=== PATIENT | male | born 2000 | race Asian ===

== ENCOUNTER 2023-11-13 11:38 | Emergency (ER) | payer OTHER ==
--- NOTE | 2023-11-13 11:58 | ED Physician Documentation ---
PD HPI MHE - Stated complaint Stated Complaint: MHE - Additional information Additional information: 23-year-old male no pertinent past medical history presents emergency department for increased suicidal ideation. Patient says that he is struggled with depression for some time now and lately he has been having a hard time because he feels like he does not have any more differential in society. Last night was the first time he started self cutting he told his chief command and his chief command told him come to the emergency department for mental health examination. Patient endorses recent stressors lately feels like he has had a lot of other interpersonal issues and is having hard time coping with it. He does have a plan to commit suicide in fact he says he has multiple plans but he can decide if he wants to do it fast or slow. He also endorses and homicidal ideation you have been having he tends to sometimes ruminate on thoughts of hurting them but says that he does not want to act on them. He said that he is willing to be hospitalized. He has not been on any antidepressants in the past recently started taking ashwagandha and [employer] main supplements which has helped a little bit but lately he feels more triggered than normal. 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 : None HEENT: None Psych: Depression - Allergies Allergies/Adverse Reactions: Allergies Allergy/AdvReac Type Severity Reaction Status Date / Time No Known Drug Allergies Allergy Verified 11/13/23 12:16 PD ED PE NORMAL - Vitals Vital signs reviewed: Yes - General General: Alert and oriented X 3, No acute distress, Well developed/nourished - HEENT HEENT: Atraumatic, PERRL - Cardiac Cardiac: RRR - Respiratory Respiratory: No respiratory distress, Clear bilaterally - Derm Derm: Other (Superficial linear cut mclean to the anterior mid right thigh) PD ED PE EXPANDED - Psych Psych: Depressed, Suicidal, Homicidal, Withdrawn, Poor eye contact. No: Intoxicated / AOB, Tearful, Anxious, Agitated, Combative, Manic, Pressured speech, Flight of ideas, Auditory hallucinations, Visual hallucinations, Tactile hallucinations, Delusions Results - Vitals Vitals: Vital Signs - 24 hr 11/13/23 11/13/23 12:00 18:20 Temperature 37.0 C 36.8 C Heart Rate 92 72 Respiratory 20 16 Rate Blood Pressure 149/93 H 125/74 O2 Saturation 98 99 Oxygen O2 Source Room air - Labs Labs: Laboratory Tests 11/13/23 11/13/23 11/13/23 12:06 12:06 15:03 WBC 8.1 RBC 5.32 Hgb 14.8 Hct 46.1 MCV 86.7 MCH 27.8 MCHC 32.1 RDW 13.3 Plt Count 278 MPV 8.6 Neut # (Auto) 5.1 Lymph # (Auto) 2.2 [place] # (Auto) 0.5 Eos # (Auto) 0.2 Baso # (Auto) 0.1 Absolute Nucleated RBC 0.00 Nucleated RBC % 0.0 Sodium 138 Potassium 4.0 Chloride 104 Carbon Dioxide 27 Anion Gap 7.0 BUN 17 Creatinine 1.1 Estimated GFR (MDRD) 83 L Glucose 108 H Calcium 9.8 Magnesium 1.7 Total Bilirubin 0.6 AST 22 ALT 12 Alkaline Phosphatase 87 Total Creatine Kinase 236 H Total Protein 7.5 Albumin 4.4 Globulin 3.1 Albumin/Globulin Ratio 1.4 Lipase 107 H TSH 1.69 Urine Color YELLOW Urine Clarity CLEAR Urine pH 6.0 Ur Specific [place] 1.025 Urine Protein NEGATIVE Urine Glucose (UA) NEGATIVE Urine Ketones NEGATIVE Urine Occult Blood NEGATIVE Urine Nitrite NEGATIVE Urine Bilirubin NEGATIVE Urine Urobilinogen 0.2 (NORMAL) Ur Leukocyte Esterase NEGATIVE Ur Microscopic Review NOT INDICATED Urine Culture Comments NOT INDICATED Salicylates < 1.5 Urine Opiates Screen NEGATIVE Ur Buprenorphine Scrn NEGATIVE Ur Oxycodone Screen NEGATIVE Urine Methadone Screen NEGATIVE Acetaminophen 0.2 Ur Barbiturates Screen NEGATIVE Ur Tricyclics Screen NEGATIVE Ur Phencyclidine Scrn NEGATIVE Ur Amphetamine Screen NEGATIVE U Methamphetamines Scrn NEGATIVE U Benzodiazepines Scrn NEGATIVE Urine Cocaine Screen NEGATIVE U Cannabinoids Screen NEGATIVE Ur Drug Screen Comment CUTOFF CONC BELOW: Ethyl Alcohol < 10.0 PD Medical Decision Making - ED course ED course: 23-year-old male presents emergency department for concerns of suicidal ideation with intentional self cuts to his right anterior medial thigh and passive homicidal thoughts. Patient is willing to be hospitalized. We have completed some basic labs as well as urinalysis and patient is found to be medically cleared for psychiatric hospitalization. No signs of infection, no electrolyte abnormalities CK slightly elevated to 136, lipase slightly elevated at 107 no abdominal complaints or other physical complaints. Sulfate, Tylenol, alcohol level is undetectable. Social work seeing patient and going to hospitalize him he is agreeable for this. I spoke with Jeremías narayan provider [facility] who has agreed to admit the patient for further hospitalization for patient's suicidal homicidal ideation. Patient will go via BLS to [facility] for psych admission. Departure - Departure Disposition: 65 Psych Hosp/Unit DC/Xfer Clinical Impression: Mental health problem, Suicidal ideations, Deliberate self-cutting, Homicidal thoughts Condition: Good Forms: PCP List Discharge Date/Time: 11/13/23 18:24
[2023-11-13 12:11] LABS: BASOPHILS # (AUTO) 0.1 10^3/uL (0.0-0.1); BASOPHILS % (AUTO) 0.7 %; EOSINOPHILS # (AUTO) 0.2 10^3/uL (0.0-0.7); EOSINOPHILS % (AUTO) 2.7 %; HCT - HEMATOCRIT 46.1 % (42.0-52.0); HGB - HEMOGLOBIN 14.8 g/dL (14.0-18.0); LYMPHOCYTES # (AUTO) 2.2 10^3/uL (1.5-3.5); LYMPHOCYTES % (AUTO) 26.7 %; MEAN CORPUSCULAR HEMOGLOBIN 27.8 pg (27.0-31.0); MEAN CORPUSCULAR HGB CONC 32.1 g/dL (32.0-36.0); MEAN CORPUSCULAR VOLUME 86.7 fL (80.0-94.0); MEAN PLATELET VOLUME 8.6 fL (7.4-11.4); MONOCYTES # (AUTO) 0.5 10^3/uL (0.0-1.0); MONOCYTES % (AUTO) 6.1 %; NEUTROPHILS # (AUTO) 5.1 10^3/uL (1.5-6.6); NEUTROPHILS % (AUTO) 63.4 %; PLT - PLATELET COUNT 278 10^3/uL (130-450); RED BLOOD COUNT 5.32 10^6/uL (4.70-6.10); RED CELL DISTRIBUTION WIDTH 13.3 % (12.0-15.0); WHITE BLOOD COUNT 8.1 x10^3/uL (4.8-10.8)
[2023-11-13 12:29] LABS: ACETAMINOPHEN 0.2 ug/mL; ALBUMIN 4.4 g/dL (3.2-5.5); ALBUMIN/GLOBULIN RATIO 1.4 (1.0-2.2); ALKALINE PHOSPHATASE 87 IU/L (42-121); ALT ALANINE AMINOTRANSFERASE 12 IU/L (10-60); AST ASPARTATE AMINOTRANSFERASE 22 IU/L (10-42); BILIRUBIN,TOTAL 0.6 mg/dL (0.2-1.0); BUN - BLOOD UREA NITROGEN 17 mg/dL (6-20); CALCIUM 9.8 mg/dL (8.5-10.3); CARBON DIOXIDE - CO2 27 mmol/L (21-32); CHLORIDE 104 mmol/L (101-111); CK- CREATINE KINASE 236 IU/L (30-223); CREATININE 1.1 mg/dL (0.6-1.3); ETOH - ETHANOL < 10.0 mg/dL; GFR - MDRD 83 (>89); GLUCOSE 108 mg/dL (74-104); LIPASE 107 U/L (11-82); MAGNESIUM 1.7 mg/dL (1.7-2.3); SODIUM 138 mmol/L (135-145); TOTAL PROTEIN 7.5 g/dL (6.4-8.9)
[2023-11-13 12:37] LABS: SALICYLATE < 1.5 mg/dL
[2023-11-13 12:40] LABS: THYROID STIMULATING HORMONE 1.69 uIU/mL (0.34-5.60)
[2023-11-13 15:09] LABS: BILIRUBIN,URINE NEGATIVE (NEGATIVE); CLARITY,URINE CLEAR (CLEAR); GLUCOSE, URINE (UA) NEGATIVE (NEGATIVE); KETONES,URINE (UA) NEGATIVE (NEGATIVE); LEUKOCYTE ESTERASE, URINE NEGATIVE (NEGATIVE); NITRITE,URINE NEGATIVE (NEGATIVE); OCCULT BLOOD,URINE NEGATIVE (NEGATIVE); PROTEIN,URINE NEGATIVE (NEGATIVE); UROBILINOGEN,URINE 0.2 (NORMAL) E.U./dL (NORMAL)
[2023-11-13 15:20] LABS: AMPHETAMINE SCREEN,URINE NEGATIVE (NEGATIVE); BARBITURATE SCREEN,UR NEGATIVE (NEGATIVE); BENZODIAZEPINES SCREEN, URINE NEGATIVE (NEGATIVE); BUPRENORPHINE SCREEN, URINE NEGATIVE (NEGATIVE); COCAINE SCREEN URINE NEGATIVE (NEGATIVE); METHADONE SCREEN, URINE NEGATIVE (NEGATIVE); METHAMPHETAMINES SCREEN, URINE NEGATIVE (NEGATIVE); OPIATE SCREEN, URINE NEGATIVE (NEGATIVE); OXYCODONE SCREEN, URINE NEGATIVE (NEGATIVE); THC CANNABINOID SCREEN, URINE NEGATIVE (NEGATIVE); TRICYCLIC ANTIDEPRESSANT,URINE NEGATIVE (NEGATIVE)
[2023-11-13 18:25] VITALS: BP 125/74; O2SAT 99
== END 2023-11-13 18:24 ==
LOC: ED 11:38
DX: R45.851 Suicidal ideations (principal); R45.850 Homicidal ideations; R45.88 Nonsuicidal self-harm
CPT/HCPCS: 36415; 80053; 80143; 80179; 80306; 81001; 81003; 82077; 82550; 83690; 83735; 84443; 85025; 87086; 99285

== ENCOUNTER 2023-12-02 16:21 | Emergency (ER) | payer OTHER ==
[2023-12-02 16:39] VITALS: O2SAT 99
--- NOTE | 2023-12-02 16:58 | ED Physician Documentation ---
PD HPI MHE - Stated complaint Stated Complaint: SI - Chief complaint Chief Complaint: MHE - Additional information Additional information: 23-year-old male presents emergency department for suicidal ideation with a plan. Patient was recently here for suicidal homicidal ideation he was hospitalized at [facility] and he says overall he is doing significantly better especially in comparison to last time he was here is having some ongoing suici mariama ideation and thoughts. He has been in therapy but is worried that he needs more. Unclear what entirely triggered this event of suicidal ideation but says that he might of missed read the situation or friends facial expressions and says that he later found out that she is on her period. He saying that he does not want to be hospitalized at this point in time but does want to check in with someone to make sure that he does not act on anything he has been started on antidepressants and feels overall that they are working. Denies any illicit drug use or substance abuse. Denies any homicidal thoughts. PD PAST MEDICAL HISTORY - Past Medical History Past Medical History: Yes Cardiovascular: None Respiratory: None Neuro: None Endocrine/Autoimmune: None GI: None BIOCHEMIST: None : None HEENT: None Psych: Depression - Past Surgical History Past Surgical History: No - Present Medications Home Medications: Ambulatory Orders Medication Instructions Recorded Confirmed ARIPiprazole [Abilify] 5 mg PO DAILY 12/02/23 12/02/23 Mirtazapine 15 mg PO HS 12/02/23 12/02/23 - Allergies Allergies/Adverse Reactions: Allergies Allergy/AdvReac Type Severity Reaction Status Date / Time No Known Drug Allergies Allergy Verified 12/02/23 16:36 - Social History Does the pt smoke?: Yes Smoking Status: Current every day smoker Does the pt drink ETOH?: Yes Does the pt have substance abuse?: No - Immunizations Immunizations are current?: Yes - POLST Patient has POLST: No PD ED PE NORMAL - Vitals Vital signs reviewed: Yes - General General: Alert and oriented X 3, No acute distress, Well developed/nourished - HEENT HEENT: Atraumatic, PERRL, EOMI - Neck Neck: Supple, no meningeal sign - Cardiac Cardiac: RRR - Respiratory Respiratory: No respiratory distress, Clear bilaterally - Abdomen Abdomen: Normal bowel sounds PD ED PE EXPANDED - Psych Psych: Normal, Depressed, Suicidal. No: Intoxicated / AOB, Homicidal, Tearful, Withdrawn, Poor eye contact, Anxious, Manic, Pressured speech, Flight of ideas, Auditory hallucinations, Visual hallucinations, Tactile hallucinations, Delusions Results - Vitals Vitals: Vital Signs - 24 hr 12/02/23 12/02/23 16:29 21:20 Temperature 36.3 C L Heart Rate 69 72 Respiratory 15 16 Rate Blood Pressure 128/69 122/66 O2 Saturation 99 99 Oxygen O2 Source Room air - Labs Labs: Laboratory Tests 12/02/23 12/02/23 12/02/23 17:06 17:06 17:20 WBC 10.1 RBC 5.28 Hgb 15.1 Hct 46.4 MCV 87.9 MCH 28.6 MCHC 32.5 RDW 13.3 Plt Count 227 MPV 8.7 Neut # (Auto) 5.9 Lymph # (Auto) 2.8 [place] # (Auto) 0.7 Eos # (Auto) 0.6 Baso # (Auto) 0.1 Absolute Nucleated RBC 0.00 Nucleated RBC % 0.0 Sodium 138 Potassium 4.1 Chloride 101 Carbon Dioxide 31 Anion Gap 6.0 BUN 15 Creatinine 1.2 Estimated GFR (MDRD) 75 L Glucose 89 Calcium 9.8 Magnesium 1.7 Total Bilirubin 0.6 AST 24 ALT 15 Alkaline Phosphatase 89 Total Creatine Kinase 198 Total Protein 7.9 Albumin 4.6 Globulin 3.3 Albumin/Globulin Ratio 1.4 Lipase 11 TSH 1.65 Urine Color YELLOW Urine Clarity CLEAR Urine pH 7.0 Ur Specific [place] 1.020 Urine Protein NEGATIVE Urine Glucose (UA) NEGATIVE Urine Ketones NEGATIVE Urine Occult Blood NEGATIVE Urine Nitrite NEGATIVE Urine Bilirubin NEGATIVE Urine Urobilinogen 0.2 (NORMAL) Ur Leukocyte Esterase NEGATIVE Ur Microscopic Review NOT INDICATED Urine Culture Comments NOT INDICATED Salicylates < 1.5 Urine Opiates Screen NEGATIVE Ur Buprenorphine Scrn NEGATIVE Ur Oxycodone Screen NEGATIVE Urine Methadone Screen NEGATIVE Acetaminophen 0.2 Ur Barbiturates Screen NEGATIVE Ur Tricyclics Screen NEGATIVE Ur Phencyclidine Scrn NEGATIVE Ur Amphetamine Screen NEGATIVE U Methamphetamines Scrn NEGATIVE U Benzodiazepines Scrn NEGATIVE Urine Cocaine Screen NEGATIVE U Cannabinoids Screen NEGATIVE Ur Drug Screen Comment CUTOFF CONC BELOW: Ethyl Alcohol < 10.0 PD Medical Decision Making - ED course ED course: 23-year-old male here for suicidal ideation. Patient says that he has no intentions on acting on this at this point in time he does have a plan to either shoot himself or cut his wrist but he does not have current access to a gun at this point in time. Labs were complete for further evaluation all lab findings were completely unremarkable as well as his urinalysis, negative for urine drug screen negative for alcohol. He is medically cleared at this point time to speak with telemetry psych. Patient says in comparison to when he was here last he is actually feeling significantly better but just wants to talk to someone to make sure that he does not act on his suicidal ideation. Patient was evaluated by telepsych they are recommending outpatient therapy at this point in time patient is already established with counseling outpatient he is told to follow-up with his therapist to see if they are able to increase up his appointments. He denies any plan of suicide at this point in time he says that he is feeling better and is feeling ready to discharge home. He understands return precautions and if things get worse to come back into the emergency department as he has been doing. Departure - Departure Disposition: 01 Home, Self Care Clinical Impression: Suicidal ideation Instructions: ED Stress React, ED Depression Comments: Thank you for trusting us with your care. You have been evaluated by telepsych and at this point in time you are cleared for discharge. Please come back to the emergency department if you are starting develop any worsening suicidal homicidal ideation. Please follow-up with your [facility] counselor for ongoing outpatient further counseling and therapy. Forms: PCP List Discharge Date/Time: 12/02/23 21:20
[2023-12-02 17:10] LABS: BASOPHILS # (AUTO) 0.1 10^3/uL (0.0-0.1); BASOPHILS % (AUTO) 0.8 %; EOSINOPHILS # (AUTO) 0.6 10^3/uL (0.0-0.7); EOSINOPHILS % (AUTO) 5.5 %; HCT - HEMATOCRIT 46.4 % (42.0-52.0); HGB - HEMOGLOBIN 15.1 g/dL (14.0-18.0); LYMPHOCYTES # (AUTO) 2.8 10^3/uL (1.5-3.5); LYMPHOCYTES % (AUTO) 27.7 %; MEAN CORPUSCULAR HEMOGLOBIN 28.6 pg (27.0-31.0); MEAN CORPUSCULAR HGB CONC 32.5 g/dL (32.0-36.0); MEAN CORPUSCULAR VOLUME 87.9 fL (80.0-94.0); MEAN PLATELET VOLUME 8.7 fL (7.4-11.4); MONOCYTES # (AUTO) 0.7 10^3/uL (0.0-1.0); MONOCYTES % (AUTO) 6.9 %; NEUTROPHILS # (AUTO) 5.9 10^3/uL (1.5-6.6); NEUTROPHILS % (AUTO) 58.8 %; PLT - PLATELET COUNT 227 10^3/uL (130-450); RED BLOOD COUNT 5.28 10^6/uL (4.70-6.10); RED CELL DISTRIBUTION WIDTH 13.3 % (12.0-15.0); WHITE BLOOD COUNT 10.1 x10^3/uL (4.8-10.8)
[2023-12-02 17:19] LABS: MAGNESIUM 1.7 mg/dL (1.7-2.3)
[2023-12-02 17:25] LABS: ACETAMINOPHEN 0.2 ug/mL; ALBUMIN 4.6 g/dL (3.2-5.5); ALBUMIN/GLOBULIN RATIO 1.4 (1.0-2.2); ALKALINE PHOSPHATASE 89 IU/L (42-121); ALT ALANINE AMINOTRANSFERASE 15 IU/L (10-60); AST ASPARTATE AMINOTRANSFERASE 24 IU/L (10-42); BILIRUBIN,TOTAL 0.6 mg/dL (0.2-1.0); BUN - BLOOD UREA NITROGEN 15 mg/dL (6-20); CALCIUM 9.8 mg/dL (8.5-10.3); CARBON DIOXIDE - CO2 31 mmol/L (21-32); CHLORIDE 101 mmol/L (101-111); CK- CREATINE KINASE 198 IU/L (30-223); CREATININE 1.2 mg/dL (0.6-1.3); ETOH - ETHANOL < 10.0 mg/dL; GFR - MDRD 75 (>89); GLUCOSE 89 mg/dL (74-104); LIPASE 11 U/L (11-82); POTASSIUM 4.1 mmol/L (3.5-4.5); SODIUM 138 mmol/L (135-145); TOTAL PROTEIN 7.9 g/dL (6.4-8.9)
[2023-12-02 17:26] LABS: SALICYLATE < 1.5 mg/dL
[2023-12-02 17:32] LABS: BILIRUBIN,URINE NEGATIVE (NEGATIVE); GLUCOSE, URINE (UA) NEGATIVE (NEGATIVE); KETONES,URINE (UA) NEGATIVE (NEGATIVE); LEUKOCYTE ESTERASE, URINE NEGATIVE (NEGATIVE); NITRITE,URINE NEGATIVE (NEGATIVE); OCCULT BLOOD,URINE NEGATIVE (NEGATIVE); PROTEIN,URINE NEGATIVE (NEGATIVE); UROBILINOGEN,URINE 0.2 (NORMAL) E.U./dL (NORMAL)
[2023-12-02 17:33] LABS: CLARITY,URINE CLEAR (CLEAR)
[2023-12-02 17:38] LABS: THYROID STIMULATING HORMONE 1.65 uIU/mL (0.34-5.60)
[2023-12-02 17:42] LABS: COCAINE SCREEN URINE NEGATIVE (NEGATIVE); THC CANNABINOID SCREEN, URINE NEGATIVE (NEGATIVE)
[2023-12-02 17:43] LABS: AMPHETAMINE SCREEN,URINE NEGATIVE (NEGATIVE); BARBITURATE SCREEN,UR NEGATIVE (NEGATIVE); BENZODIAZEPINES SCREEN, URINE NEGATIVE (NEGATIVE); BUPRENORPHINE SCREEN, URINE NEGATIVE (NEGATIVE); METHADONE SCREEN, URINE NEGATIVE (NEGATIVE); METHAMPHETAMINES SCREEN, URINE NEGATIVE (NEGATIVE); OPIATE SCREEN, URINE NEGATIVE (NEGATIVE); OXYCODONE SCREEN, URINE NEGATIVE (NEGATIVE); TRICYCLIC ANTIDEPRESSANT,URINE NEGATIVE (NEGATIVE)
--- NOTE | 2023-12-02 20:31 | TELEPSYCH PHYS NOTE ---
[facility] Telepsych Consult Consult Date: 12/02/23 Name of Referring Provider:: ED Provider- Dr. Zafar.. (Could not see full name) Reason for Consult: suicidal ideation - Suicide Risk Sreening (ASQ Tool) In the past few weeks, have you wished you were ?: No In the past few weeks, have you felt that you or your family would be better off if you were ?: No In the past week, have you been having thoughts about killing yourself?: Yes Have you ever tried to kill yourself?: No - Assessment Language: Kiswahili Cultural, Anabaptist or Spiritual Preferences: Denies Chief Complaint: "basically I started to spiral a little bit into a negative thought process but it led into me having suicidal thoughts and thought instead of continuing down this path, I would seek out help. But after some self-reflecting and careful observation, I realize that it was just in my head and I was overthinking" History of Present Illness: Pt is a 23yo M w/ hx of borderline personality disorder, depression, and anxiety who presented with suicidal ideation. Pt reports he had some suicidal ideation earlier today, but feels much better now. He states he utilized his coping skill on how to challenge negative thoughts and only look at facts. He reports he learned the coping skills through behavioral therapy and a book he read called the "Happiness Track." Pt reports he misread his friend's facial expressions. Denies SI, denies HI, denies self-harm thoughts. Pt reports the most recent he cut himself was 2 weeks ago as self-harm, and he was admitted to inpatient hospitalization for that. Pt reports he wants to live for his future. He is in the currently and after he is finished with that, he wants to go to college and pursue a computer science degree. He states he has a good support system with friends and family. When asked about his plan earlier, he says he was just "caught up in the heat of the moment" and he didn't mean it. Pt states if he had suicidal thoughts, he would contact the aircraft powerplant repairer or call his friend. He reports he would also call the crisis line. Suicide Ideation - Homicide Ideation - Self Harm: Denies SI, denies HI, denies self-harm Psychiatric History - Treatment History: Inpatient psychiatric hospitalization: most recently admitted 2 weeks ago (first time- admitted for suicidal ideation) Past diagnosis: borderline personality disorder Community Resources Accessed: He has an outpatient therapist. Family Psych History/ History of suicide: grandma- committed suicide Nutritional Status: No nutritional concerns - Medication & Allergies Home Medications: Ambulatory Orders Medication Instructions Recorded Confirmed ARIPiprazole [Abilify] 5 mg PO DAILY 12/02/23 12/02/23 Mirtazapine 15 mg PO HS 12/02/23 12/02/23 Allergies/Adverse Reactions: Allergies Allergy/AdvReac Type Severity Reaction Status Date / Time No Known Drug Allergies Allergy Verified 12/02/23 16:36 - Drug & Alcohol History Does patient have Drug/ETOH history or addictive behavior?: No Use: Uses substance without health or social issues: NONE - Trauma Does the patient have a history of trauma, abuse, neglect or explotation?: No - Personal Information Does the patient have a history or present tendencies for violence?: None Services History: currently in the Does patient have any Legal Charges or Investigations?: No Environment & Living Situation - Social, Peer-Group (Note): At home Environment & Living Situation - Social, Peer-Group (Notes): lives with roommate, denies firearms at home Marital Status - Family Circumstances: never , no children, identifies having a very good support system Stressors - Financial Concerns: He feels concerned about the people he affected when he cut his leg. He states after he did that he realized how much trouble he put on people around him, and he doesn't want to do that again. Education: graduated highschool Occupation: currently in and works with [employer] Collateral - Interdisciplinary Input: Reviewed ED notes, Collateral with Mom (Momi #[phone]): She feels pt is safe to go home. 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: reports: None - Mental Status Exam Appearance and Attire: hospital clothes, casually groomed Attitude and Behavior: cooperative, no PMA, no PMR Speech: normal rate, amount Affect and Mood: "ok" congruent with mood Association and Thought Process: intact association, linear and organized thought process Thought Content: denies SI, denies HI Perception: denies AVH Sensorium, memory and orientation: alert and oriented to perosn, place, memory grossly intact Intellectual - Cognitive functioning: fair Insight and Judgement: fair insight, fair judgement Emotional and Behavioral Functioning: fair Ability to Self-Care: fair - Personal Goals Short-term Goals: to go home and call his mom Long-term Goals: to graduate from and go to college - Risk/Protective Factors Risk Factors: Trigger events leading to humiliation, shame and/or despair Protective Factors / Internal: Ability to cope with stress, Frustration tolerance, Anabaptist beliefs, Fear of or the actual act of killing self, Identifies reasons for living Protective Factors / External: Cultural, spiritual and/or moral attitudes against suicide, Supportive social network of family or friends, Engaged in work or school - Plan Impression/Risk Assessment: Pt is a 23 yoM w/ hx of borderline personality disorder who presented for suicidal ideation. Pt states he used his coping skills, and he is feeling much better. He denies SI, denies HI. He is future-oriented, has a good support system, and has goals. He can safety plan. Given all of this, he is not an acute safety concern and is appropriate for outpatient level of care. Treatment - Therapy Recommendations: - Outpatient therapy - Please put the following in discharge instructions: If you have any thoughts of hurting yourself or anyone else, please call the crisis line at or [phone], let your outpatient provider know, call [phone], or return to the Emergency Department. Please follow up with your mental health provider or primary care physician within 2 weeks to check in." Pharmacological Recommendations: Continue home medications - Time Spent & Provider Location Telepsych consultation conducted via videoconferencing: Yes List names and roles of persons who participated in consult: Juan Jose Campos MD Telepsych Provider Location: [place] Time Spent (Minutes): 45
[2023-12-02 21:26] VITALS: BP 122/66
== END 2023-12-02 21:20 | disposition home or self-care (01) ==
LOC: ED 16:21
DX: R45.851 Suicidal ideations (principal); F17.200 Nicotine dependence, unspecified, uncomplicated
CPT/HCPCS: 36415; 80053; 80143; 80179; 80306; 81001; 81003; 82077; 82550; 83690; 83735; 84443; 85025; 87086; 99283; 99284